=== PATIENT | female | born 1935 | race African-American/Black ===

== ENCOUNTER 2016-08-03 22:43 | Inpatient (IN) | payer MEDICARE, MEDICAID ==
[~2016-08-03] VITALS: Ht 162.6 cm; Wt 68.2 kg
[~2016-08-03 22:43] MED LIST: ASPI-1035 PO; BENA40TA3 PO; HYDR12.54 PO
[2016-08-03] MEDS ORDERED: IPRATROPIUM BROMIDE (0.02%) 0.5MG/2.5ML NEB HHN STA (22:54)
[2016-08-03] MEDS ORDERED: METHYLPREDNISOLONE SOD SUCC 125 MG/2 ML VIAL IV STA (22:54)
[2016-08-03] MEDS ORDERED: FUROSEMIDE 40MG/4ML VIAL IV ONE (23:00)
[2016-08-03] MEDS ORDERED: ALBUTEROL (0.083%) 2.5MG/3ML NEB HHN SCH (23:00)
[2016-08-03] MEDS ORDERED: IPRATROPIUM BROMIDE (0.02%) 0.5MG/2.5ML NEB ONE (23:12)
[2016-08-03 23:27] LABS: EOSINOPHILS % 1.1 % (0.0-5.0); HEMATOCRIT. 32.7 % (36.0-48.0); HEMOGLOBIN. 10.8 g/dL (12.0-16.0); MEAN CORPUSCULAR HEMOGLOBIN 27.4 pg (28.0-32.0); MEAN CORPUSCULAR VOLUME 82.9 fL (81.0-99.0); MEAN PLATELET VOLUME 9.5 fl (7.4-10.4); MONOCYTES % 4.7 % (2.0-8.0); NEUTROPHILS % 64.2 % (40.0-76.0); PLATELET 410 x1000/uL (130-400); RED BLOOD CELL COUNT 3.95 mill/uL (4.2-5.4); RED CELL DISTRIBUTION WIDTH 17.7 % (11.6-14.6); WHITE BLOOD COUNT 9.4 x1000/uL (4.5-11.0)
[2016-08-03 23:29] LABS: BG BASE EXCESS -4.4 mmol/L (-2.0-2.0); BG CARBOXYHEMOGLOBIN 0.1 % (0.5-1.5); BG DEOXYHEMOGLOBIN 0.6 % (0.0-5.0); BG FRACTION INSPIRED OXYGEN 100; BG HCO3 ACT 22.9 mmol/L (22.0-26.0); BG METHEMOGLOBIN 0.3 % (0.0-1.5); BG OXYGEN SATURATION 99.4 % (92.0-98.5); BG PCO2 52.2 mmHg (35.0-45.0); BG PO2 309.4 mmHg (75.0-100.0); BG SAMPLE SITE RIGHT RADIAL; BG TOTAL HEMOGLOBIN 11.5 g/dL (12.0-18.0); BG VENT MODE MASK - NRB
[2016-08-03 23:58] LABS: ANION GAP 14; CALCIUM 8.4 mg/dL (8.5-10.1); CARBON DIOXIDE 24 mEq/L (21-32); CHLORIDE 107 mEq/L (98-107); UREA NITROGEN BLOOD 24 mg/dL (7-21); eGFR 58 mL/min (>60)
[2016-08-03 23:59] LABS: ALANINE AMINOTRANSFERASE 16 IU/L (13-61); ALBUMIN 2.7 g/dL (3.4-5.0); NT PRO B-TYPE NATRIURETIC PEP 17283 pg/mL (5-125); TROPONIN I 0.13 ng/mL (0.00-0.04)
[2016-08-04] VITALS (13 sets, daily range): BP systolic 136–169; BP diastolic 45–117
[2016-08-04 00:09] LABS: INDEX HEMOLYSI 1 (1-3); INDEX ICTERIC 1 (1-4); INDEX LIPEMIC 1 (1-3)
[2016-08-04] MEDS ORDERED: HYDROCODONE/ACETAMINOPHEN 10/325MG TABLET PO PRN (11:15)
[2016-08-04] MEDS ORDERED: HYDROCODONE/ACETAMINOPHEN 5/325MG TABLET PO PRN (11:15)
[2016-08-04] MEDS ORDERED: ONDANSETRON HCL 4MG/2ML VIAL IV PRN (11:15)
[2016-08-04] MEDS ORDERED: DIPHENHYDRAMINE 50MG/ML VIAL IV PRN (11:15)
[2016-08-04] MEDS ORDERED: MAGNESIUM/ALUMINUM HYDROXIDE/SIMETHICONE 30ML UDC PO PRN (11:15)
[2016-08-04] MEDS ORDERED: IPRATROPIUM/ALBUTEROL 0.5-3(2.5)MG/3ML NEB INH PRN (11:15)
[2016-08-04] MEDS ORDERED: CLONIDINE 0.1MG TABLET PO PRN (11:15)
[2016-08-04] MEDS ORDERED: NA PHOS,M-B/NA PHOS,DI-BA ENEMA 118ML PR PRN (11:15)
[2016-08-04] MEDS ORDERED: DEXTROSE 50% WATER 50ML SYRINGE IV PRN (11:15)
[2016-08-04] MEDS ORDERED: DOCUSATE SODIUM 100MG CAPSULE PO PRN (11:15)
[2016-08-04] MEDS: IPRATROPIUM/ALBUTEROL 0.5-3(2.5)MG/3ML NEB INH SCH ×2 (12:26→21:20)
[2016-08-04] MEDS: BLOOD SUGAR DIAGNOSTIC STRIP TEST SCH ×3 (12:30→21:00)
[2016-08-04] MEDS: FUROSEMIDE 40MG/4ML VIAL IV SCH ×2 (13:28→18:21)
[2016-08-04] MEDS: ASPIRIN 81MG EC TABLET PO SCH (13:28)
[2016-08-04] MEDS: BENAZEPRIL 20MG TABLET PO SCH (13:28)
[2016-08-04] MEDS ORDERED: AMLODIPINE 5MG TABLET PO NR (13:30)
[2016-08-04] MEDS: INSULIN LISPRO 100 UNITS/ML SUBCUT SCH ×3 (13:37→21:00)
[2016-08-04] MEDS ORDERED: LEVOFLOXACIN 750MG PREMIX 150 ML IV SCH (14:00)
[2016-08-04 14:28] LABS: TROPONIN I 0.25 ng/mL (0.00-0.04)
[2016-08-04] MEDS: AZITHROMYCIN 500 MG in DEXT 5% WATER 250 ML IV SCH (16:43)
[2016-08-04] MEDS: METHYLPREDNISOLONE SOD SUCC 40 MG/ML VIAL IV SCH ×2 (16:43→23:04)
[2016-08-04] MEDS ORDERED: CARVEDILOL 3.125 MG TABLET PO SCH (21:00)
[2016-08-04] MEDS: BUDESONIDE 0.5MG/2ML NEB HHN SCH (21:21)
[2016-08-04] MEDS ORDERED: METHYLPREDNISOLONE SOD SUCC 125 MG/2 ML VIAL IV SCH (22:00)
[2016-08-04] MEDS: FLUTICASONE PROPIONATE 50MCG/SPRAY BOTTLE BOTHNSTRLS SCH (22:02)
[2016-08-04 22:59] LABS: CREATINE KINASE MB FRACTION 3.6 ng/mL (0.5-3.6); TROPONIN I 0.17 ng/mL (0.00-0.04)
[2016-08-05] VITALS (11 sets, daily range): BP systolic 123–156; BP diastolic 78–99
[2016-08-05] MEDS: IPRATROPIUM/ALBUTEROL 0.5-3(2.5)MG/3ML NEB INH SCH ×4 (02:25→20:16)
[2016-08-05] MEDS: FUROSEMIDE 40MG/4ML VIAL IV SCH (06:18)
[2016-08-05] MEDS: METHYLPREDNISOLONE SOD SUCC 40 MG/ML VIAL IV SCH (06:18)
[2016-08-05 06:19] LABS: HEMATOCRIT. 31.7 % (36.0-48.0); HEMOGLOBIN. 10.7 g/dL (12.0-16.0); MEAN CORPUSCULAR HEMOGLOBIN 27.1 pg (28.0-32.0); MEAN CORPUSCULAR HGB CONC 33.7 g/dL (31.0-37.0); MEAN CORPUSCULAR VOLUME 80.6 fL (81.0-99.0); MEAN PLATELET VOLUME 9.3 fl (7.4-10.4); PLATELET 385 x1000/uL (130-400); RED BLOOD CELL COUNT 3.94 mill/uL (4.2-5.4); RED CELL DISTRIBUTION WIDTH 17.5 % (11.6-14.6); WHITE BLOOD COUNT 12.3 x1000/uL (4.5-11.0)
[2016-08-05 06:27] LABS: DIFFERENTIAL COMMENT 1
[2016-08-05 06:35] LABS: ALBUMIN 2.7 g/dL (3.4-5.0); ANION GAP 16; CALCIUM 8.6 mg/dL (8.5-10.1); CARBON DIOXIDE 23 mEq/L (21-32); CHLORIDE 104 mEq/L (98-107); INDEX HEMOLYSI 1 (1-3); INDEX ICTERIC 1 (1-4); INDEX LIPEMIC 1 (1-3); UREA NITROGEN BLOOD 36 mg/dL (7-21)
[2016-08-05 06:45] LABS: ALANINE AMINOTRANSFERASE 16 IU/L (13-61); HDL CHOLESTEROL 79 mg/dL (40-59); LDL CHOLESTEROL 132 mg/dL (5-100); T3 FREE 1.34 pg/ml (2.18-3.98); THYROID STIMULATING HORMONE 0.51 uIU/mL (0.36-3.74); TRIGLYCERIDE 55 mg/dL (0-150); TROPONIN I 0.13 ng/mL (0.00-0.04); eGFR 48 mL/min (>60)
[2016-08-05] MEDS ORDERED: LIDOCAINE HCL/PF 1% 2ML VIAL ONE (07:00)
[2016-08-05 07:13] LABS: PLATELET ESTIMATE NORMAL
[2016-08-05] MEDS: BUDESONIDE 0.5MG/2ML NEB HHN SCH ×2 (07:30→20:16)
[2016-08-05] MEDS: INSULIN LISPRO 100 UNITS/ML SUBCUT SCH ×4 (07:35→21:00)
[2016-08-05] MEDS: BLOOD SUGAR DIAGNOSTIC STRIP TEST SCH ×4 (07:35→21:00)
[2016-08-05] MEDS: FLUTICASONE PROPIONATE 50MCG/SPRAY BOTTLE BOTHNSTRLS SCH ×2 (09:06→22:21)
[2016-08-05] MEDS: BENAZEPRIL 20MG TABLET PO SCH (09:07)
[2016-08-05] MEDS: AMLODIPINE 5MG TABLET PO SCH (09:07)
[2016-08-05] MEDS: ASPIRIN 81MG EC TABLET PO SCH (09:07)
[2016-08-05] MEDS: PREDNISONE 20MG TABLET PO SCH ×2 (09:10→17:58)
[2016-08-05 10:21] LABS: BG BASE EXCESS -1.9 mmol/L (-2.0-2.0); BG DEOXYHEMOGLOBIN 6.3 % (0.0-5.0); BG FRACTION INSPIRED OXYGEN 21; BG HCO3 ACT 21.8 mmol/L (22.0-26.0); BG METHEMOGLOBIN 0.3 % (0.0-1.5); BG OXYGEN SATURATION 93.7 % (92.0-98.5); BG OXYHEMOGLOBIN 93.4 % (94.0-97.0); BG PCO2 33.3 mmHg (35.0-45.0); BG PH 7.433 (7.350-7.450); BG PO2 65.5 mmHg (75.0-100.0); BG SAMPLE SITE RIGHT BRACHIAL; BG TOTAL HEMOGLOBIN 11.5 g/dL (12.0-18.0); BG VENT MODE ROOM AIR
[2016-08-05] MEDS: AZITHROMYCIN 500 MG in DEXT 5% WATER 250 ML IV SCH (15:31)
[2016-08-05] MEDS: ACETAMINOPHEN 325MG TABLET PO PRN (16:17)
[2016-08-05] MEDS: FUROSEMIDE 40MG TABLET PO SCH (22:21)
[2016-08-05] MEDS: ATORVASTATIN CALCIUM 20MG TABLET PO SCH (22:21)
[2016-08-06] VITALS (11 sets, daily range): BP systolic 135–156; BP diastolic 74–97
[2016-08-06] MEDS: IPRATROPIUM/ALBUTEROL 0.5-3(2.5)MG/3ML NEB INH SCH ×4 (00:57→21:00)
[2016-08-06] MEDS: ACETAMINOPHEN 325MG TABLET PO PRN (01:57)
[2016-08-06 06:35] LABS: CALCIUM 9.1 mg/dL (8.5-10.1); MAGNESIUM 2.1 mg/dL (1.8-2.4)
[2016-08-06 07:35] LABS: HEMATOCRIT. 31.9 % (36.0-48.0); HEMOGLOBIN. 10.6 g/dL (12.0-16.0); MEAN CORPUSCULAR HEMOGLOBIN 26.8 pg (28.0-32.0); MEAN CORPUSCULAR HGB CONC 33.1 g/dL (31.0-37.0); MEAN CORPUSCULAR VOLUME 80.8 fL (81.0-99.0); MEAN PLATELET VOLUME 10.2 fl (7.4-10.4); PLATELET 345 x1000/uL (130-400); RED BLOOD CELL COUNT 3.94 mill/uL (4.2-5.4); RED CELL DISTRIBUTION WIDTH 17.8 % (11.6-14.6); WHITE BLOOD COUNT 18.2 x1000/uL (4.5-11.0)
[2016-08-06] MEDS: BLOOD SUGAR DIAGNOSTIC STRIP TEST SCH ×4 (07:39→21:39)
[2016-08-06 07:47] LABS: DIFFERENTIAL COMMENT 1
[2016-08-06] MEDS: BUDESONIDE 0.5MG/2ML NEB HHN SCH ×2 (08:48→21:00)
[2016-08-06] MEDS: FLUTICASONE PROPIONATE 50MCG/SPRAY BOTTLE BOTHNSTRLS SCH ×2 (09:55→21:38)
[2016-08-06] MEDS: AZITHROMYCIN 500 MG TABLET PO SCH (09:56)
[2016-08-06] MEDS: ASPIRIN 81MG EC TABLET PO SCH (09:56)
[2016-08-06] MEDS: FUROSEMIDE 40MG TABLET PO SCH ×2 (09:57→21:39)
[2016-08-06] MEDS: BENAZEPRIL 20MG TABLET PO SCH (09:57)
[2016-08-06] MEDS: PREDNISONE 20MG TABLET PO SCH ×2 (09:57→17:50)
[2016-08-06] MEDS: AMLODIPINE 5MG TABLET PO SCH (09:58)
[2016-08-06] MEDS: INSULIN LISPRO 100 UNITS/ML SUBCUT SCH ×3 (10:17→17:56)
[2016-08-06 12:05] LABS: ACANTHOCYTES 1+; ANISOCYTOSIS 1+; OVALOCYTES 1+; PLATELET ESTIMATE NORMAL
[2016-08-06] MEDS: ATORVASTATIN CALCIUM 20MG TABLET PO SCH (21:39)
[2016-08-07] VITALS (7 sets, daily range): BP systolic 46–133; BP diastolic 33–85
[2016-08-07] MEDS: IPRATROPIUM/ALBUTEROL 0.5-3(2.5)MG/3ML NEB INH SCH ×3 (00:16→14:25)
[2016-08-07 06:37] LABS: HEMATOCRIT. 33.2 % (36.0-48.0); HEMOGLOBIN. 11.1 g/dL (12.0-16.0); MEAN CORPUSCULAR HGB CONC 33.6 g/dL (31.0-37.0); MEAN CORPUSCULAR VOLUME 80.3 fL (81.0-99.0); MEAN PLATELET VOLUME 9.5 fl (7.4-10.4); PLATELET 418 x1000/uL (130-400); RED BLOOD CELL COUNT 4.13 mill/uL (4.2-5.4); RED CELL DISTRIBUTION WIDTH 17.6 % (11.6-14.6); WHITE BLOOD COUNT 12.5 x1000/uL (4.5-11.0)
[2016-08-07 06:52] LABS: CALCIUM 8.2 mg/dL (8.5-10.1)
[2016-08-07 07:07] LABS: DIFFERENTIAL COMMENT 1
[2016-08-07] MEDS: INSULIN LISPRO 100 UNITS/ML SUBCUT SCH ×3 (07:20→12:04)
[2016-08-07] MEDS: BLOOD SUGAR DIAGNOSTIC STRIP TEST SCH ×2 (07:21→12:04)
[2016-08-07 08:32] LABS: ACANTHOCYTES 1+; ANISOCYTOSIS 1+; OVALOCYTES 2+; PLATELET ESTIMATE SLIGHTLY INCREASED
[2016-08-07] MEDS: AMLODIPINE 5MG TABLET PO SCH (08:52)
[2016-08-07] MEDS: ASPIRIN 81MG EC TABLET PO SCH (08:52)
[2016-08-07] MEDS: PREDNISONE 20MG TABLET PO SCH (08:52)
[2016-08-07] MEDS: FUROSEMIDE 40MG TABLET PO SCH (08:52)
[2016-08-07] MEDS: BENAZEPRIL 20MG TABLET PO SCH (08:52)
[2016-08-07] MEDS: AZITHROMYCIN 500 MG TABLET PO SCH (08:53)
[2016-08-07] MEDS: FLUTICASONE PROPIONATE 50MCG/SPRAY BOTTLE BOTHNSTRLS SCH (08:53)
[2016-08-07] MEDS: BUDESONIDE 0.5MG/2ML NEB HHN SCH (09:32)
[2016-08-07] MEDS ORDERED: PULM50 HHN (10:17)
[2016-08-07] MEDS ORDERED: ACET-2178 PO (10:17)
[2016-08-07] MEDS ORDERED: AZIT500T5 PO (10:17)
[2016-08-07] MEDS ORDERED: ATOR20TA PO (10:17)
[2016-08-07] MEDS ORDERED: METH4TAB17 PO (10:17)
[2016-08-07 10:57] LABS: MAGNESIUM 2.1 mg/dL (1.8-2.4)
[2016-08-07] MEDS ORDERED: DOCU-138 PO (19:48)
[2016-08-07] MEDS ORDERED: ATEN50TA PO (19:49)
[2016-08-07] MEDS ORDERED: LISI-604 PO (19:52)
[2016-08-07] MEDS ORDERED: POTA10CA42 PO (19:52)
[2016-08-08] MEDS ORDERED: FUROSEMIDE 40MG TABLET PO SCH (09:00)
[2016-08-08] MEDS ORDERED: PREDNISONE 20MG TABLET PO SCH (09:00)
== END 2016-08-07 16:35 | disposition short-term general hospital (02) | DRG 291 ==
LOC: ER 22:44 → 5EST 08-04 05:34
PROVIDERS: ADMIT Internal Medicine; ATTEND Internal Medicine
PROC: 5A09357 Assistance with Respiratory Ventilation, Less than 24 Consecutive Hours, Continuous Positive Airway Pressure (ICD-10-PCS; principal; 2016-08-04)
DX: I11.0 Hypertensive heart disease with heart failure (principal); J96.20 Acute and chronic respiratory failure, unspecified whether with hypoxia or hypercapnia; E43 Unspecified severe protein-calorie malnutrition; J44.1 Chronic obstructive pulmonary disease with (acute) exacerbation; I82.502 Chronic embolism and thrombosis of unspecified deep veins of left lower extremity; I50.23 Acute on chronic systolic (congestive) heart failure; I42.9 Cardiomyopathy, unspecified; E11.9 Type 2 diabetes mellitus without complications; E66.9 Obesity, unspecified; E78.5 Hyperlipidemia, unspecified; G47.33 Obstructive sleep apnea (adult) (pediatric); Z96.1 Presence of intraocular lens; I25.10 Atherosclerotic heart disease of native coronary artery without angina pectoris; I27.2 Other secondary pulmonary hypertension; J30.9 Allergic rhinitis, unspecified; J31.0 Chronic rhinitis; Z86.79 Personal history of other diseases of the circulatory system; I25.2 Old myocardial infarction; Z87.891 Personal history of nicotine dependence; Z68.25 Body mass index [BMI] 25.0-25.9, adult; Z88.1 Allergy status to other antibiotic agents
CPT/HCPCS: 36415; 36600; 71010; 80048; 80053; 80061; 82375; 82550; 82553; 82805; 82962; 83690; 83735; 83880; 84439; 84443; 84481; 84484; 85025; 87040; 92610; 93005; 93306; 93970; 94640; 96374; 96375; 97116; 97162; 97166; 97530; 97535; 99291; J0456; J1200; J1815; J1940; J1956; J2920; J2930; J3490; J7040; J7060; J7512; J7611; J7620; J7626

== ENCOUNTER 2016-08-07 17:58 | Inpatient (IN) | payer MEDICARE, MEDICAID ==
[~2016-08-07] VITALS: Ht 162.6 cm; Wt 68.0 kg
[~2016-08-07 17:58] MED LIST changes: +ACET-2178 PO; +ATOR20TA PO; +AZIT500T5 PO; +METH4TAB17 PO; +PULM50 HHN
[2016-08-07] MEDS ORDERED: DOCU-138 PO (19:48)
[2016-08-07] MEDS ORDERED: ATEN50TA PO (19:49)
[2016-08-07] MEDS ORDERED: LISI-604 PO (19:52)
[2016-08-07] MEDS ORDERED: POTA10CA42 PO (19:52)
[2016-08-07 20:00] VITALS: BP 142/76
[2016-08-07] MEDS ORDERED: NA PHOS,M-B/NA PHOS,DI-BA ENEMA 118ML PR PRN (20:30)
[2016-08-07] MEDS ORDERED: HYDROCODONE/ACETAMINOPHEN 5/325MG TABLET PO PRN (20:30)
[2016-08-07] MEDS ORDERED: ONDANSETRON HCL 4MG TABLET PO PRN (20:30)
[2016-08-07] MEDS ORDERED: MAGNESIUM/ALUMINUM HYDROXIDE/SIMETHICONE 30ML UDC PO PRN (20:30)
[2016-08-07] MEDS ORDERED: IPRATROPIUM/ALBUTEROL 0.5-3(2.5)MG/3ML NEB HHN PRN (20:30)
[2016-08-07] MEDS ORDERED: CLONIDINE 0.1MG TABLET PO PRN (20:30)
[2016-08-07] MEDS ORDERED: DEXTROSE 50% WATER 50ML SYRINGE IV PRN (20:30)
[2016-08-07] MEDS ORDERED: DIPHENHYDRAMINE 25MG CAPSULE PO PRN (20:30)
[2016-08-07] MEDS ORDERED: DOCUSATE SODIUM 100MG CAPSULE PO PRN (20:30)
[2016-08-07] MEDS ORDERED: ACETAMINOPHEN 325MG TABLET PO PRN (20:30)
[2016-08-07] MEDS ORDERED: HYDROCODONE/ACETAMINOPHEN 10/325MG TABLET PO PRN (20:30)
[2016-08-07] MEDS: BLOOD SUGAR DIAGNOSTIC STRIP TEST SCH (21:00)
[2016-08-07] MEDS: FLUTICASONE PROPIONATE 50MCG/SPRAY BOTTLE BOTHNSTRLS SCH (22:32)
[2016-08-07] MEDS: ATORVASTATIN CALCIUM 20MG TABLET PO SCH (22:33)
[2016-08-07] MEDS: FUROSEMIDE 40MG TABLET PO SCH (22:34)
[2016-08-07] MEDS: INSULIN LISPRO 100 UNITS/ML SUBCUT SCH (22:37)
[2016-08-08] MEDS: BUDESONIDE 0.5MG/2ML NEB HHN SCH ×3 (00:06→21:13)
[2016-08-08] MEDS: IPRATROPIUM/ALBUTEROL 0.5-3(2.5)MG/3ML NEB HHN SCH ×4 (00:07→21:13)
[2016-08-08] MEDS: BLOOD SUGAR DIAGNOSTIC STRIP TEST SCH ×4 (05:45→21:34)
[2016-08-08] MEDS: INSULIN LISPRO 100 UNITS/ML SUBCUT SCH ×4 (05:46→21:00)
[2016-08-08 07:54] LABS: HEMOGLOBIN. 11.5 g/dL (12.0-16.0); MEAN CORPUSCULAR HEMOGLOBIN 26.9 pg (28.0-32.0); MEAN CORPUSCULAR VOLUME 81.7 fL (81.0-99.0); MEAN PLATELET VOLUME 9.3 fl (7.4-10.4); PLATELET 420 x1000/uL (130-400); RED BLOOD CELL COUNT 4.28 mill/uL (4.2-5.4); RED CELL DISTRIBUTION WIDTH 17.4 % (11.6-14.6); WHITE BLOOD COUNT 11.5 x1000/uL (4.5-11.0)
[2016-08-08 07:57] LABS: DIFFERENTIAL COMMENT 1
[2016-08-08 08:00] VITALS: BP 145/91
[2016-08-08] MEDS: FUROSEMIDE 40MG TABLET PO SCH ×2 (08:22→21:34)
[2016-08-08] MEDS: DOCUSATE SODIUM 100MG CAPSULE PO SCH ×2 (08:22→16:21)
[2016-08-08] MEDS: PREDNISONE 20MG TABLET PO SCH ×2 (08:22→16:21)
[2016-08-08] MEDS: AZITHROMYCIN 500 MG TABLET PO SCH (08:23)
[2016-08-08] MEDS: AMLODIPINE 5MG TABLET PO SCH (08:23)
[2016-08-08] MEDS: BENAZEPRIL 20MG TABLET PO SCH (08:23)
[2016-08-08] MEDS: FLUTICASONE PROPIONATE 50MCG/SPRAY BOTTLE BOTHNSTRLS SCH ×2 (08:23→21:35)
[2016-08-08] MEDS: ASPIRIN 81MG EC TABLET PO SCH (08:23)
[2016-08-08] MEDS: ENOXAPARIN 30MG/0.3ML SYR SUBCUT SCH ×2 (08:23→08:32)
[2016-08-08 15:02] LABS: ATYPICAL LYMPHOCYTES 1
[2016-08-08 15:03] LABS: ANISOCYTOSIS 2+; OVALOCYTES 2+; PLATELET ESTIMATE SLIGHTLY INCREASED
[2016-08-08 20:00] VITALS: BP 133/79
[2016-08-08] MEDS: ATORVASTATIN CALCIUM 20MG TABLET PO SCH (21:34)
[2016-08-09] MEDS: IPRATROPIUM/ALBUTEROL 0.5-3(2.5)MG/3ML NEB HHN SCH ×4 (04:41→22:03)
[2016-08-09] MEDS: BLOOD SUGAR DIAGNOSTIC STRIP TEST SCH ×4 (06:30→21:35)
[2016-08-09] MEDS: INSULIN LISPRO 100 UNITS/ML SUBCUT SCH ×4 (07:44→21:35)
[2016-08-09 08:00] VITALS: BP 144/88
[2016-08-09] MEDS: ASPIRIN 81MG EC TABLET PO SCH (08:21)
[2016-08-09] MEDS: FUROSEMIDE 40MG TABLET PO SCH ×2 (08:21→21:30)
[2016-08-09] MEDS: BENAZEPRIL 20MG TABLET PO SCH (08:21)
[2016-08-09] MEDS: AZITHROMYCIN 500 MG TABLET PO SCH (08:21)
[2016-08-09] MEDS: AMLODIPINE 5MG TABLET PO SCH (08:21)
[2016-08-09] MEDS: DOCUSATE SODIUM 100MG CAPSULE PO SCH ×2 (08:21→16:01)
[2016-08-09] MEDS: FLUTICASONE PROPIONATE 50MCG/SPRAY BOTTLE BOTHNSTRLS SCH ×2 (08:22→21:30)
[2016-08-09] MEDS: PREDNISONE 20MG TABLET PO SCH ×2 (08:22→16:01)
[2016-08-09] MEDS: ENOXAPARIN 30MG/0.3ML SYR SUBCUT SCH (08:24)
[2016-08-09] MEDS: BUDESONIDE 0.5MG/2ML NEB HHN SCH ×2 (09:57→22:02)
[2016-08-09 20:44] VITALS: BP 125/71
[2016-08-09] MEDS: ATORVASTATIN CALCIUM 20MG TABLET PO SCH (21:30)
[2016-08-10] MEDS: IPRATROPIUM/ALBUTEROL 0.5-3(2.5)MG/3ML NEB HHN SCH ×4 (02:45→21:57)
[2016-08-10] MEDS: BLOOD SUGAR DIAGNOSTIC STRIP TEST SCH ×4 (06:52→21:00)
[2016-08-10] MEDS: INSULIN LISPRO 100 UNITS/ML SUBCUT SCH ×4 (06:53→21:00)
[2016-08-10] MEDS: BUDESONIDE 0.5MG/2ML NEB HHN SCH ×2 (07:26→21:57)
[2016-08-10 08:00] VITALS: BP 134/96
[2016-08-10] MEDS: ENOXAPARIN 30MG/0.3ML SYR SUBCUT SCH (08:38)
[2016-08-10] MEDS: FLUTICASONE PROPIONATE 50MCG/SPRAY BOTTLE BOTHNSTRLS SCH (08:38)
[2016-08-10] MEDS: PREDNISONE 20MG TABLET PO SCH ×2 (08:39→17:27)
[2016-08-10] MEDS: DOCUSATE SODIUM 100MG CAPSULE PO SCH ×2 (08:39→17:27)
[2016-08-10] MEDS: ASPIRIN 81MG EC TABLET PO SCH (08:40)
[2016-08-10] MEDS: FUROSEMIDE 40MG TABLET PO SCH ×2 (08:40→21:30)
[2016-08-10] MEDS: AMLODIPINE 5MG TABLET PO SCH (08:40)
[2016-08-10] MEDS: BENAZEPRIL 20MG TABLET PO SCH (08:40)
[2016-08-10] MEDS: AZITHROMYCIN 500 MG TABLET PO SCH (08:40)
[2016-08-10 20:00] VITALS: BP 142/82
[2016-08-10] MEDS: ATORVASTATIN CALCIUM 20MG TABLET PO SCH (21:30)
[2016-08-11] MEDS: IPRATROPIUM/ALBUTEROL 0.5-3(2.5)MG/3ML NEB HHN SCH ×3 (04:16→21:14)
[2016-08-11] MEDS: BLOOD SUGAR DIAGNOSTIC STRIP TEST SCH ×4 (05:51→20:42)
[2016-08-11 08:00] VITALS: BP 152/96
[2016-08-11] MEDS: FUROSEMIDE 40MG TABLET PO SCH ×2 (08:25→20:32)
[2016-08-11] MEDS: AMLODIPINE 5MG TABLET PO SCH (08:25)
[2016-08-11] MEDS: PREDNISONE 20MG TABLET PO SCH ×2 (08:25→16:48)
[2016-08-11] MEDS: AZITHROMYCIN 500 MG TABLET PO SCH (08:26)
[2016-08-11] MEDS: ASPIRIN 81MG EC TABLET PO SCH (08:26)
[2016-08-11] MEDS: DOCUSATE SODIUM 100MG CAPSULE PO SCH ×2 (08:26→16:48)
[2016-08-11] MEDS: BENAZEPRIL 20MG TABLET PO SCH (08:26)
[2016-08-11] MEDS: ENOXAPARIN 30MG/0.3ML SYR SUBCUT SCH (08:26)
[2016-08-11] MEDS: INSULIN LISPRO 100 UNITS/ML SUBCUT SCH ×4 (08:28→20:42)
[2016-08-11] MEDS: BUDESONIDE 0.5MG/2ML NEB HHN SCH ×2 (10:12→21:15)
[2016-08-11 20:00] VITALS: BP 132/70
[2016-08-11] MEDS: ATORVASTATIN CALCIUM 20MG TABLET PO SCH (20:32)
[2016-08-12] MEDS: IPRATROPIUM/ALBUTEROL 0.5-3(2.5)MG/3ML NEB HHN SCH ×4 (01:20→20:42)
[2016-08-12] MEDS: BLOOD SUGAR DIAGNOSTIC STRIP TEST SCH (05:54)
[2016-08-12] MEDS: INSULIN LISPRO 100 UNITS/ML SUBCUT SCH (05:54)
[2016-08-12 08:00] VITALS: BP 164/94
[2016-08-12] MEDS: PREDNISONE 20MG TABLET PO SCH ×2 (08:04→16:37)
[2016-08-12] MEDS: AZITHROMYCIN 500 MG TABLET PO SCH (08:04)
[2016-08-12] MEDS: DOCUSATE SODIUM 100MG CAPSULE PO SCH ×2 (08:04→16:37)
[2016-08-12] MEDS: BENAZEPRIL 20MG TABLET PO SCH (08:04)
[2016-08-12] MEDS: ASPIRIN 81MG EC TABLET PO SCH (08:04)
[2016-08-12] MEDS: AMLODIPINE 5MG TABLET PO SCH (08:04)
[2016-08-12] MEDS: FUROSEMIDE 40MG TABLET PO SCH ×2 (08:04→22:29)
[2016-08-12] MEDS: ENOXAPARIN 30MG/0.3ML SYR SUBCUT SCH (08:05)
[2016-08-12] MEDS: BUDESONIDE 0.5MG/2ML NEB HHN SCH ×2 (08:21→20:41)
[2016-08-12 20:00] VITALS: BP 145/74
[2016-08-12] MEDS: ATORVASTATIN CALCIUM 20MG TABLET PO SCH (22:29)
[2016-08-13] MEDS: IPRATROPIUM/ALBUTEROL 0.5-3(2.5)MG/3ML NEB HHN SCH ×4 (00:32→19:54)
[2016-08-13] MEDS: INSULIN LISPRO 100 UNITS/ML SUBCUT SCH (07:00)
[2016-08-13] MEDS: BLOOD SUGAR DIAGNOSTIC STRIP TEST SCH (07:09)
[2016-08-13] MEDS: BUDESONIDE 0.5MG/2ML NEB HHN SCH ×2 (07:33→19:58)
[2016-08-13 08:00] VITALS: BP 150/89
[2016-08-13] MEDS: BENAZEPRIL 20MG TABLET PO SCH (08:43)
[2016-08-13] MEDS: AMLODIPINE 10MG TABLET PO SCH (08:44)
[2016-08-13] MEDS: ASPIRIN 81MG EC TABLET PO SCH (08:45)
[2016-08-13] MEDS: DOCUSATE SODIUM 100MG CAPSULE PO SCH ×2 (08:45→17:45)
[2016-08-13] MEDS: PREDNISONE 20MG TABLET PO SCH ×2 (08:45→17:45)
[2016-08-13] MEDS: FUROSEMIDE 40MG TABLET PO SCH ×2 (08:45→21:26)
[2016-08-13] MEDS: ENOXAPARIN 30MG/0.3ML SYR SUBCUT SCH (08:46)
[2016-08-13] MEDS: AZITHROMYCIN 500 MG TABLET PO SCH (08:46)
[2016-08-13] MEDS: LOSARTAN POTASSIUM 25 MG TABLET PO SCH (14:40)
[2016-08-13 20:00] VITALS: BP 137/77
[2016-08-13] MEDS: ATORVASTATIN CALCIUM 20MG TABLET PO SCH (21:26)
[2016-08-14] MEDS: IPRATROPIUM/ALBUTEROL 0.5-3(2.5)MG/3ML NEB HHN SCH ×3 (01:37→13:57)
[2016-08-14 06:27] LABS: HEMATOCRIT. 32.6 % (36.0-48.0); MEAN CORPUSCULAR HEMOGLOBIN 26.8 pg (28.0-32.0); MEAN CORPUSCULAR HGB CONC 33.8 g/dL (31.0-37.0); MEAN CORPUSCULAR VOLUME 79.3 fL (81.0-99.0); MEAN PLATELET VOLUME 9.5 fl (7.4-10.4); PLATELET 434 x1000/uL (130-400); RED BLOOD CELL COUNT 4.11 mill/uL (4.2-5.4); RED CELL DISTRIBUTION WIDTH 17.3 % (11.6-14.6); WHITE BLOOD COUNT 15.2 x1000/uL (4.5-11.0)
[2016-08-14] MEDS: INSULIN LISPRO 100 UNITS/ML SUBCUT SCH (07:00)
[2016-08-14] MEDS: BLOOD SUGAR DIAGNOSTIC STRIP TEST SCH (07:05)
[2016-08-14 07:09] LABS: DIFFERENTIAL COMMENT 1
[2016-08-14] MEDS: BUDESONIDE 0.5MG/2ML NEB HHN SCH (07:18)
[2016-08-14 08:00] VITALS: BP 158/88
[2016-08-14 08:11] LABS: ALANINE AMINOTRANSFERASE 32 IU/L (13-61); ALBUMIN 2.6 g/dL (3.4-5.0); ANION GAP 14; CALCIUM 8.2 mg/dL (8.5-10.1); CARBON DIOXIDE 29 mEq/L (21-32); CHLORIDE 102 mEq/L (98-107); INDEX HEMOLYSI 1 (1-3); INDEX ICTERIC 1 (1-4); INDEX LIPEMIC 1 (1-3); MAGNESIUM 2.3 mg/dL (1.8-2.4); UREA NITROGEN BLOOD 59 mg/dL (7-21); eGFR > 60 mL/min (>60)
[2016-08-14] MEDS ORDERED: PREDNISONE 20MG TABLET PO SCH (09:00)
[2016-08-14] MEDS ORDERED: FLUTICASONE PROPIONATE 50MCG/SPRAY BOTTLE BOTHNSTRLS SCH (09:00)
[2016-08-14] MEDS ORDERED: FAMOTIDINE 20MG TABLET PO SCH (09:00)
[2016-08-14] MEDS: DOCUSATE SODIUM 100MG CAPSULE PO SCH ×2 (09:59→18:09)
[2016-08-14] MEDS: ASPIRIN 81MG EC TABLET PO SCH (10:00)
[2016-08-14] MEDS: LOSARTAN POTASSIUM 25 MG TABLET PO SCH (10:00)
[2016-08-14] MEDS: FUROSEMIDE 40MG TABLET PO SCH (10:00)
[2016-08-14] MEDS: AMLODIPINE 10MG TABLET PO SCH (10:00)
[2016-08-14] MEDS: ENOXAPARIN 30MG/0.3ML SYR SUBCUT SCH (10:01)
[2016-08-14] MEDS: BENAZEPRIL 20MG TABLET PO SCH (10:01)
[2016-08-14 12:38] LABS: ANISOCYTOSIS 1+; OVALOCYTES 2+; PLATELET ESTIMATE INCREASED
[2016-08-14 12:40] LABS: ACANTHOCYTES 1+
[2016-08-14 15:59] VITALS: BP 158/88
== END 2016-08-14 18:10 | disposition home or self-care (01) | DRG 190 ==
PROVIDERS: ADMIT Psychiatry & Neurology Neurology; ATTEND Internal Medicine
DX: J44.1 Chronic obstructive pulmonary disease with (acute) exacerbation (principal); J96.00 Acute respiratory failure, unspecified whether with hypoxia or hypercapnia; E43 Unspecified severe protein-calorie malnutrition; I42.9 Cardiomyopathy, unspecified; I82.502 Chronic embolism and thrombosis of unspecified deep veins of left lower extremity; I50.22 Chronic systolic (congestive) heart failure; J31.0 Chronic rhinitis; M13.0 Polyarthritis, unspecified; E78.5 Hyperlipidemia, unspecified; E11.9 Type 2 diabetes mellitus without complications; I11.0 Hypertensive heart disease with heart failure; R26.9 Unspecified abnormalities of gait and mobility; Z96.1 Presence of intraocular lens; G47.33 Obstructive sleep apnea (adult) (pediatric); I25.10 Atherosclerotic heart disease of native coronary artery without angina pectoris; Z60.2 Problems related to living alone; Z82.49 Family history of ischemic heart disease and other diseases of the circulatory system; Z68.25 Body mass index [BMI] 25.0-25.9, adult; Z72.0 Tobacco use; Z86.79 Personal history of other diseases of the circulatory system; I25.2 Old myocardial infarction; Z88.1 Allergy status to other antibiotic agents
CPT/HCPCS: 36415; 71010; 80053; 82962; 83735; 85025; 93005; 94620; 94640; 97110; 97116; 97162; 97166; 97530; 97535; J1650; J1815; J7512; J7620; J7626

== ENCOUNTER 2016-10-09 17:10 | Inpatient (IN) | payer MEDICARE, MEDICAID ==
[~2016-10-09] VITALS: Ht 160 cm; Wt 79.4 kg
[~2016-10-09 17:10] MED LIST changes: -ASPI-1035 PO; +ASPI-1159 PO; +ATEN50TA PO; +DOCU-138 PO; -HYDR12.54 PO; +POTA10CA42 PO
[2016-10-09 18:45] VITALS: BP 126/67
[2016-10-09] MEDS ORDERED: DIPHENHYDRAMINE 50MG/ML VIAL IM PRN (19:45)
[2016-10-09] MEDS ORDERED: VANCOMYCIN 500 MG PREMIX 100 ML IV SCH (19:45)
[2016-10-09] MEDS ORDERED: ONDANSETRON HCL 4MG/2ML VIAL IV PRN (19:45)
[2016-10-09] MEDS ORDERED: CLONIDINE 0.2MG TABLET PO PRN (19:45)
[2016-10-09] MEDS ORDERED: GUAIFENESIN 200MG/10ML SUGAR FREE UDC PO PRN (19:45)
[2016-10-09] MEDS ORDERED: MAGNESIUM HYDROXIDE 400MG/5ML 30ML UDC PO PRN (19:45)
[2016-10-09] MEDS ORDERED: ACETAMINOPHEN 325MG TABLET PO PRN (19:45)
[2016-10-09] MEDS ORDERED: DEXTROSE 50% WATER 50ML SYRINGE IV PRN (19:45)
[2016-10-09] MEDS ORDERED: DOXYCYCLINE 100 MG in DEXT 5% WATER 100 ML IV SCH (19:45)
[2016-10-09] MEDS ORDERED: CLONIDINE 0.1MG TABLET PO PRN (19:45)
[2016-10-09] MEDS ORDERED: IPRATROPIUM/ALBUTEROL 0.5-3(2.5)MG/3ML NEB HHN PRN (19:45)
[2016-10-09 20:00] VITALS: BP 154/92
[2016-10-09] MEDS ORDERED: CEFEPIME HCL 1000MG/VIAL INJ IM SCH (21:00)
[2016-10-09] MEDS: INSULIN LISPRO 100 UNITS/ML SUBCUT SCH (21:00)
[2016-10-09] MEDS ORDERED: CEFEPIME HCL 1000MG/VIAL INJ IV SCH (21:00)
[2016-10-09] MEDS: BLOOD SUGAR DIAGNOSTIC STRIP TEST SCH (21:07)
[2016-10-09] MEDS: ATORVASTATIN CALCIUM 20MG TABLET PO SCH (21:08)
[2016-10-09] MEDS: DOXYCYCLINE HYCLATE 100MG CAPSULE PO SCH (21:09)
[2016-10-09] MEDS: LOSARTAN POTASSIUM 50 MG TABLET PO SCH (21:09)
[2016-10-09] MEDS: SODIUM CHLORIDE 0.9% INJ 3ML FLUSH IVF SCH (21:11)
[2016-10-09] MEDS: CEFEPIME 1,000 MG in DEXTROSE 5% WATER 50 ML IV SCH (22:19)
[2016-10-09] MEDS: DILTIAZEM HCL 60MG TABLET PO SCH (22:33)
[2016-10-09] MEDS: ISOSORB DINIT/HYDRALAZINE HCL 20/37.5MG TABLET PO SCH (22:33)
[2016-10-09] MEDS ORDERED: DIPHENHYDRAMINE 50MG/ML VIAL IV PRN (23:45)
[2016-10-09] MEDS: VANCOMYCIN 750 MG PREMIX 150 ML IV SCH (23:57)
[2016-10-10] MEDS: IPRATROPIUM/ALBUTEROL 0.5-3(2.5)MG/3ML NEB HHN SCH ×6 (00:04→20:38)
[2016-10-10] MEDS: DILTIAZEM HCL 60MG TABLET PO SCH ×3 (06:00→22:58)
[2016-10-10] MEDS: INSULIN LISPRO 100 UNITS/ML SUBCUT SCH ×4 (06:10→21:00)
[2016-10-10] MEDS: BLOOD SUGAR DIAGNOSTIC STRIP TEST SCH ×4 (06:10→21:35)
[2016-10-10] MEDS: ISOSORB DINIT/HYDRALAZINE HCL 20/37.5MG TABLET PO SCH ×3 (06:18→22:58)
[2016-10-10] MEDS: SODIUM CHLORIDE 0.9% INJ 3ML FLUSH IVF SCH ×3 (06:19→21:36)
[2016-10-10 08:00] VITALS: BP 142/76
[2016-10-10] MEDS: DOCUSATE SODIUM 100MG CAPSULE PO SCH ×2 (09:00→16:31)
[2016-10-10] MEDS: FUROSEMIDE 40MG/4ML VIAL IVP SCH (09:33)
[2016-10-10] MEDS: CEFEPIME 1,000 MG in DEXTROSE 5% WATER 50 ML IV SCH ×2 (09:33→21:35)
[2016-10-10] MEDS: DOXYCYCLINE HYCLATE 100MG CAPSULE PO SCH ×2 (09:34→21:35)
[2016-10-10] MEDS: PREDNISONE 20MG TABLET PO SCH (09:34)
[2016-10-10] MEDS: ASPIRIN 81MG TABLET PO SCH ×2 (09:34→16:30)
[2016-10-10] MEDS: COLCHICINE 0.6MG TABLET PO SCH (09:34)
[2016-10-10] MEDS: LOSARTAN POTASSIUM 50 MG TABLET PO SCH ×2 (09:34→21:35)
[2016-10-10] MEDS: ENOXAPARIN 40MG/0.4ML SYR SUBCUT SCH (09:35)
[2016-10-10 14:01] LABS: HEMATOCRIT. 31.4 % (36.0-48.0); HEMOGLOBIN. 10.7 g/dL (12.0-16.0); MEAN CORPUSCULAR HEMOGLOBIN 27.2 pg (28.0-32.0); MEAN CORPUSCULAR VOLUME 80.2 fL (81.0-99.0); MEAN PLATELET VOLUME 10.2 fl (7.4-10.4); PLATELET 497 x1000/uL (130-400); RED BLOOD CELL COUNT 3.92 mill/uL (4.2-5.4); RED CELL DISTRIBUTION WIDTH 17.6 % (11.6-14.6)
[2016-10-10] MEDS: VANCOMYCIN 750 MG PREMIX 150 ML IV SCH (17:26)
[2016-10-10 18:17] LABS: PLATELET ESTIMATE INCREASED
[2016-10-10 20:00] VITALS: BP 142/78
[2016-10-10] MEDS: ATORVASTATIN CALCIUM 20MG TABLET PO SCH (21:35)
[2016-10-11] MEDS: IPRATROPIUM/ALBUTEROL 0.5-3(2.5)MG/3ML NEB HHN SCH ×6 (00:10→20:21)
[2016-10-11 05:49] LABS: BASOPHILS % 0.2 % (0.0-2.0); EOSINOPHILS % 0.1 % (0.0-5.0); HEMATOCRIT. 29.9 % (36.0-48.0); HEMOGLOBIN. 10.1 g/dL (12.0-16.0); LYMPHOCYTES % 9.1 % (20.0-50.0); MEAN PLATELET VOLUME 9.9 fl (7.4-10.4); MONOCYTES % 7.8 % (2.0-8.0); NEUTROPHILS % 82.8 % (40.0-76.0); PLATELET 486 x1000/uL (130-400); RED BLOOD CELL COUNT 3.74 mill/uL (4.2-5.4); RED CELL DISTRIBUTION WIDTH 17.9 % (11.6-14.6)
[2016-10-11] MEDS: DILTIAZEM HCL 60MG TABLET PO SCH (06:00)
[2016-10-11] MEDS: ISOSORB DINIT/HYDRALAZINE HCL 20/37.5MG TABLET PO SCH ×3 (06:00→21:32)
[2016-10-11] MEDS: SODIUM CHLORIDE 0.9% INJ 3ML FLUSH IVF SCH ×3 (06:27→21:34)
[2016-10-11] MEDS: INSULIN LISPRO 100 UNITS/ML SUBCUT SCH ×4 (06:28→21:00)
[2016-10-11] MEDS: BLOOD SUGAR DIAGNOSTIC STRIP TEST SCH ×4 (06:28→21:33)
[2016-10-11 08:00] VITALS: BP 132/67
[2016-10-11] MEDS: PREDNISONE 20MG TABLET PO SCH (08:35)
[2016-10-11] MEDS: CEFEPIME 1,000 MG in DEXTROSE 5% WATER 50 ML IV SCH ×2 (08:35→21:33)
[2016-10-11] MEDS: DOXYCYCLINE HYCLATE 100MG CAPSULE PO SCH ×2 (08:35→21:32)
[2016-10-11] MEDS: FUROSEMIDE 40MG/4ML VIAL IVP SCH (08:35)
[2016-10-11] MEDS: ENOXAPARIN 40MG/0.4ML SYR SUBCUT SCH (08:36)
[2016-10-11] MEDS: ASPIRIN 81MG TABLET PO SCH ×2 (08:36→17:09)
[2016-10-11] MEDS: COLCHICINE 0.6MG TABLET PO SCH (08:36)
[2016-10-11] MEDS: LOSARTAN POTASSIUM 50 MG TABLET PO SCH ×2 (08:36→21:32)
[2016-10-11] MEDS: DOCUSATE SODIUM 100MG CAPSULE PO SCH ×2 (08:36→17:09)
[2016-10-11] MEDS: VANCOMYCIN 750 MG PREMIX 150 ML IV SCH (12:11)
[2016-10-11 20:00] VITALS: BP 130/74
[2016-10-11] MEDS: ATORVASTATIN CALCIUM 20MG TABLET PO SCH (21:32)
[2016-10-12] MEDS: IPRATROPIUM/ALBUTEROL 0.5-3(2.5)MG/3ML NEB HHN SCH ×6 (00:06→20:20)
[2016-10-12] MEDS: SODIUM CHLORIDE 0.9% INJ 3ML FLUSH IVF SCH ×3 (05:38→21:46)
[2016-10-12] MEDS: VANCOMYCIN 750 MG PREMIX 150 ML IV SCH (05:38)
[2016-10-12] MEDS: ISOSORB DINIT/HYDRALAZINE HCL 20/37.5MG TABLET PO SCH ×3 (05:38→21:45)
[2016-10-12] MEDS: INSULIN LISPRO 100 UNITS/ML SUBCUT SCH ×4 (05:39→21:55)
[2016-10-12] MEDS: BLOOD SUGAR DIAGNOSTIC STRIP TEST SCH ×4 (05:39→21:46)
[2016-10-12 08:00] VITALS: BP 128/78
[2016-10-12] MEDS: CEFEPIME 1,000 MG in DEXTROSE 5% WATER 50 ML IV SCH ×2 (08:13→21:44)
[2016-10-12] MEDS: COLCHICINE 0.6MG TABLET PO SCH (08:19)
[2016-10-12] MEDS: DOXYCYCLINE HYCLATE 100MG CAPSULE PO SCH ×2 (08:19→21:45)
[2016-10-12] MEDS: FUROSEMIDE 40MG/4ML VIAL IVP SCH (08:19)
[2016-10-12] MEDS: ENOXAPARIN 40MG/0.4ML SYR SUBCUT SCH (08:19)
[2016-10-12] MEDS: LOSARTAN POTASSIUM 50 MG TABLET PO SCH ×2 (08:19→21:45)
[2016-10-12] MEDS: PREDNISONE 20MG TABLET PO SCH (08:19)
[2016-10-12] MEDS: DOCUSATE SODIUM 100MG CAPSULE PO SCH ×2 (08:19→17:15)
[2016-10-12] MEDS: ASPIRIN 81MG TABLET PO SCH ×2 (08:20→17:15)
[2016-10-12 20:00] VITALS: BP 130/84
[2016-10-12] MEDS: ATORVASTATIN CALCIUM 20MG TABLET PO SCH (21:45)
[2016-10-13] MEDS: IPRATROPIUM/ALBUTEROL 0.5-3(2.5)MG/3ML NEB HHN SCH ×6 (04:00→21:22)
[2016-10-13] MEDS: ISOSORB DINIT/HYDRALAZINE HCL 20/37.5MG TABLET PO SCH ×3 (06:00→23:17)
[2016-10-13] MEDS: SODIUM CHLORIDE 0.9% INJ 3ML FLUSH IVF SCH (06:06)
[2016-10-13] MEDS: BLOOD SUGAR DIAGNOSTIC STRIP TEST SCH ×4 (06:13→21:00)
[2016-10-13] MEDS: INSULIN LISPRO 100 UNITS/ML SUBCUT SCH ×4 (07:17→21:00)
[2016-10-13 07:59] VITALS: BP 116/68
[2016-10-13 08:00] VITALS: BP 127/80
[2016-10-13] MEDS: ASPIRIN 81MG TABLET PO SCH ×2 (09:38→18:31)
[2016-10-13] MEDS: COLCHICINE 0.6MG TABLET PO SCH (09:38)
[2016-10-13] MEDS: PREDNISONE 20MG TABLET PO SCH (09:38)
[2016-10-13] MEDS: FUROSEMIDE 40MG/4ML VIAL IVP SCH (09:38)
[2016-10-13] MEDS: DOCUSATE SODIUM 100MG CAPSULE PO SCH ×2 (09:38→18:31)
[2016-10-13] MEDS: LOSARTAN POTASSIUM 50 MG TABLET PO SCH ×2 (09:38→23:16)
[2016-10-13] MEDS: ENOXAPARIN 40MG/0.4ML SYR SUBCUT SCH (09:38)
[2016-10-13 13:10] VITALS: BP 138/77
[2016-10-13 20:00] VITALS: BP 122/66
[2016-10-13] MEDS: ATORVASTATIN CALCIUM 20MG TABLET PO SCH (23:15)
[2016-10-14] MEDS: IPRATROPIUM/ALBUTEROL 0.5-3(2.5)MG/3ML NEB HHN SCH ×5 (04:00→21:07)
[2016-10-14] MEDS: ISOSORB DINIT/HYDRALAZINE HCL 20/37.5MG TABLET PO SCH ×3 (06:18→22:50)
[2016-10-14] MEDS: BLOOD SUGAR DIAGNOSTIC STRIP TEST SCH ×4 (06:19→21:29)
[2016-10-14] MEDS: INSULIN LISPRO 100 UNITS/ML SUBCUT SCH ×4 (06:19→21:00)
[2016-10-14 08:00] VITALS: BP 126/94
[2016-10-14] MEDS: COLCHICINE 0.6MG TABLET PO SCH (08:24)
[2016-10-14] MEDS: FUROSEMIDE 40MG/4ML VIAL IVP SCH (08:24)
[2016-10-14] MEDS: ASPIRIN 81MG TABLET PO SCH ×2 (08:24→16:56)
[2016-10-14] MEDS: PREDNISONE 20MG TABLET PO SCH (08:24)
[2016-10-14] MEDS: DOCUSATE SODIUM 100MG CAPSULE PO SCH ×2 (08:25→16:56)
[2016-10-14] MEDS: ENOXAPARIN 40MG/0.4ML SYR SUBCUT SCH (08:25)
[2016-10-14] MEDS: LOSARTAN POTASSIUM 50 MG TABLET PO SCH ×2 (08:25→21:29)
[2016-10-14] MEDS: BUDESONIDE 0.5MG/2ML NEB HHN SCH ×2 (10:50→21:07)
[2016-10-14] MEDS: SILDENAFIL CITRATE 20MG TABLET PO SCH ×2 (13:14→22:50)
[2016-10-14 20:00] VITALS: BP 127/79
[2016-10-14] MEDS: ATORVASTATIN CALCIUM 20MG TABLET PO SCH (21:29)
[2016-10-15] MEDS: IPRATROPIUM/ALBUTEROL 0.5-3(2.5)MG/3ML NEB HHN SCH ×5 (00:35→20:13)
[2016-10-15] MEDS: ISOSORB DINIT/HYDRALAZINE HCL 20/37.5MG TABLET PO SCH ×3 (06:00→21:50)
[2016-10-15] MEDS: SILDENAFIL CITRATE 20MG TABLET PO SCH ×3 (06:00→21:50)
[2016-10-15] MEDS: BLOOD SUGAR DIAGNOSTIC STRIP TEST SCH ×4 (07:11→21:54)
[2016-10-15] MEDS: BUDESONIDE 0.5MG/2ML NEB HHN SCH ×2 (07:14→20:13)
[2016-10-15] MEDS: INSULIN LISPRO 100 UNITS/ML SUBCUT SCH ×4 (07:22→21:00)
[2016-10-15 08:00] VITALS: BP 126/81
[2016-10-15] MEDS: LOSARTAN POTASSIUM 50 MG TABLET PO SCH ×2 (08:36→21:50)
[2016-10-15] MEDS: DOCUSATE SODIUM 100MG CAPSULE PO SCH ×2 (08:36→17:21)
[2016-10-15] MEDS: ENOXAPARIN 40MG/0.4ML SYR SUBCUT SCH (08:36)
[2016-10-15] MEDS: COLCHICINE 0.6MG TABLET PO SCH (08:36)
[2016-10-15] MEDS: FUROSEMIDE 40MG/4ML VIAL IVP SCH (08:36)
[2016-10-15] MEDS: ASPIRIN 81MG TABLET PO SCH ×2 (08:36→17:21)
[2016-10-15 20:00] VITALS: BP 121/70
[2016-10-15] MEDS: ATORVASTATIN CALCIUM 20MG TABLET PO SCH (21:50)
[2016-10-16] MEDS: IPRATROPIUM/ALBUTEROL 0.5-3(2.5)MG/3ML NEB HHN SCH ×5 (00:34→16:00)
[2016-10-16 06:20] VITALS: BP 133/72
[2016-10-16] MEDS: ISOSORB DINIT/HYDRALAZINE HCL 20/37.5MG TABLET PO SCH ×2 (06:22→14:44)
[2016-10-16] MEDS: SILDENAFIL CITRATE 20MG TABLET PO SCH ×2 (06:22→14:44)
[2016-10-16] MEDS: BLOOD SUGAR DIAGNOSTIC STRIP TEST SCH ×3 (06:25→17:00)
[2016-10-16] MEDS: INSULIN LISPRO 100 UNITS/ML SUBCUT SCH ×3 (06:25→17:00)
[2016-10-16 08:08] VITALS: BP 99/63
[2016-10-16] MEDS: ENOXAPARIN 40MG/0.4ML SYR SUBCUT SCH (08:32)
[2016-10-16] MEDS: BUDESONIDE 0.5MG/2ML NEB HHN SCH (08:32)
[2016-10-16] MEDS: FUROSEMIDE 40MG/4ML VIAL IVP SCH (08:32)
[2016-10-16] MEDS: DOCUSATE SODIUM 100MG CAPSULE PO SCH ×2 (08:33→17:10)
[2016-10-16] MEDS: COLCHICINE 0.6MG TABLET PO SCH (08:33)
[2016-10-16] MEDS: ASPIRIN 81MG TABLET PO SCH ×2 (08:33→17:10)
[2016-10-16] MEDS: LOSARTAN POTASSIUM 50 MG TABLET PO SCH (08:33)
[2016-10-16 15:13] VITALS: BP 114/69
== END 2016-10-16 18:39 | disposition home or self-care (01) | DRG 189 ==
PROVIDERS: ADMIT Psychiatry & Neurology Neurology; ATTEND Internal Medicine
DX: J96.01 Acute respiratory failure with hypoxia (principal); A41.9 Sepsis, unspecified organism; G93.40 Encephalopathy, unspecified; I50.23 Acute on chronic systolic (congestive) heart failure; I26.99 Other pulmonary embolism without acute cor pulmonale; J18.9 Pneumonia, unspecified organism; E46 Unspecified protein-calorie malnutrition; J44.1 Chronic obstructive pulmonary disease with (acute) exacerbation; I42.0 Dilated cardiomyopathy; I82.532 Chronic embolism and thrombosis of left popliteal vein; E66.9 Obesity, unspecified; E78.5 Hyperlipidemia, unspecified; E87.5 Hyperkalemia; G47.33 Obstructive sleep apnea (adult) (pediatric); H40.9 Unspecified glaucoma; I11.0 Hypertensive heart disease with heart failure; I25.10 Atherosclerotic heart disease of native coronary artery without angina pectoris; I27.2 Other secondary pulmonary hypertension; I48.0 Paroxysmal atrial fibrillation; I49.3 Ventricular premature depolarization; E11.9 Type 2 diabetes mellitus without complications; I71.9 Aortic aneurysm of unspecified site, without rupture; E78.00 Pure hypercholesterolemia, unspecified; F39 Unspecified mood [affective] disorder; R32 Unspecified urinary incontinence; H26.9 Unspecified cataract; M13.0 Polyarthritis, unspecified; I25.2 Old myocardial infarction; Z68.31 Body mass index [BMI] 31.0-31.9, adult; Z98.49 Cataract extraction status, unspecified eye; Z86.79 Personal history of other diseases of the circulatory system; Z87.440 Personal history of urinary (tract) infections; Z87.891 Personal history of nicotine dependence; Z88.1 Allergy status to other antibiotic agents; I69.398 Other sequelae of cerebral infarction
CPT/HCPCS: 36415; 71010; 80048; 80202; 82962; 83735; 85025; 92523; 93005; 94640; 94660; 97110; 97116; 97163; 97167; 97530; 97535; J0692; J1650; J1815; J1940; J3370; J7040; J7050; J7060; J7512; J7620; J7626